=== PATIENT | male | born 1965 ===

== ENCOUNTER 2024-01-27 09:30 | Emergency (ER) | payer BC, SELFPAY ==
[2024-01-27 09:47] VITALS: BP 163/67
--- NOTE | 2024-01-27 10:51 | ED.GENMED ---
History of Present Illness
General
Chief Complaint: Dizziness
Source: patient
Exam Limitations: none
Time Seen by Provider: 01/27/24 10:08
Nursing documentation reviewed up to this point in time: agreed with
History of Present Illness
History of Present Illness:
58 y/o M with no sig pmh
on no meds
doesn't visit doctors
sent by urgent care for symptoms that started 6 days ago
woke up in the morning and felt very dizzy with standing, felt his vision go dark and fell forward but caught himself ; he also felt that the room was a little spinning and he got really warm afterward, flushed ni his face and sweaty. he never fully
passed out he says.
he says he held on to the wall to get to the bathroom but it did eventually pass
then he felt ok
he remembered a few years ago he had vertigo symptoms so he started taking dramamine 2 days later to make sure it didn't come bakc
but then 2 days ago another episode when goign from sitting to standing happened, less intense than the first episode but since then he has had a 'fogginess' in his head where he just doesn't feel right, spacitally with walkings something feels off
this morning at [address] to work he developed some ches tpressure that was central chest and not associated with shortness ob reath, mild but started making him anxious
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
there he had EKG showing LBBB
with his ysmptoms, he was instructed to come to the ER
he no longer has the chest pressure
he denies pleuritic pain, headache, vision changes, numbness/tingling/weakness, speech issue, abdominal pain, nausea, vomiting
Past History
Past History
ED Past Medical History: None
ED Past Surgical History: None
Social History
Tobacco: Smoker
Alcohol: None
Drug: None
Personal:
Living: with family
Employment: Employed
Family History
Family History: Hypertension and Cancer (prostate dad); Negative Early CAD, CAD or Sudden
Review of Systems
Review of Systems
Allergies reviewed?: Yes
All Other Systems: Not applicable
Phy Exam
Physical Exam
Physical Exam:
GENERAL: Alert , in no apparent distress
EYE: pupils equal and reactive
NECK: Supple
ENT: o/p clr, mmm.
CARDIAC: regular, . no murmur appreciated; hr 50s
LUNGS: Clear breath sounds bilaterally, no acute respiratory distress, no wheezes/rales/rhonchi
ABDOMEN: Soft, without focal tenderness, no r/g, no cvat, normal bowel sounds
NEUROLOGICAL: Alert and oriented, no focal neuro deficits, cn intact, 56/5 stgrength, neg romberg, gait steady, no pronator drift
SKIN: Warm and dry, skin intact.
MUSCULOSKELETAL: No edema, well perfused. neg jeffy's sign
PSYCH: Normal and appropriate interaction.
Course
Orders/Labs/Results
Orders:
Orders
01/27/24 09:31
ECG [Electrocardiogram (*1)] Urgent
Reason for Study: Shortness of Breath
01/27/24 09:32
EKG- Treatment ONCE
01/27/24 10:48
Cardiac Monitoring- Treatment ONCE
0.9% Sodium Chloride 500 ml [Nss] 500 ml IV BOLUS
01/27/24 10:49
CT Head W/o Iv Contrast Urgent
Comment:
Reason For Exam: dizzoiness
CR Chest - 2 Views Urgent
Comment:
Reason For Exam: near sycnope vs. dizziness, cp
01/27/24 10:59
COVID-19 Antigen Urgent
Source: Nasal Swab
Complete Blood Count/With Diff Urgent
Comprehensive Metabolic Panel Urgent
Troponin I Urgent
Abnormal Lab Results
01/27/24
10:59
Absolute Monos (auto) 0.7 H 10^3/uL
(0.1-0.6)
Chloride 109 H mmol/L
(98-107)
Glucose 106 H mg/dl
(70-99)
01/27/24 10:59
01/27/24 10:59
Vital Signs
Initial and Last Documented VS:
Initial Vital Signs
Temp Pulse Resp BP Pulse Ox
99.1 F 65 16 163/67 98
01/27/24 09:47 01/27/24 09:47 01/27/24 09:47 01/27/24 09:47 01/27/24 09:47
Last Documented Vital Signs
Temp Pulse Resp BP Pulse Ox
99.1 F 65 16 163/67 98
01/27/24 09:47 01/27/24 09:47 01/27/24 09:47 01/27/24 09:47 01/27/24 09:47
MDM/Problems Addressed
Differential Diagnosis Includes:
orthostasis, hypertension, cva, vertigo, acs
MDM/Problems Addressed:
58 y/o M
initially reported no pmh
but has remotely been on htn, and hld meds
here with positional dizizness, descrbied both as lightheaded and also room spinning
ED Attending Note
-
Portions of this chart may have been created with voice recognition software.� Occasional wrong word or��sound alike� substitutions may have occurred due to the inherent limitations of voice recognition software.
Discharge Plan
Departure
Patient Disposition: Home (Routine Discharge)
Date of Disposition: 01/27/24
Time of Disposition: 12:36
Patient with high blood pressure during this ER visit?: Yes
Condition: Fair
Covid-19: Not Applicable
Discharge Problem:
Dizziness, Vertigo, Hypertension
Instructions: Vertigo (a Type of Dizziness) (DC), BLOOD PRESSURE
Prescriptions:
New
amlodipine 2.5 mg tablet
2.5 mg PO DAILY Qty: 10 0RF
meclizine 25 mg tablet
25 mg PO TID PRN (Reason: dizziness) Qty: 15 0RF
Referrals:
UNKNOWN - PT DOES,NOT KNOW [Family Provider] -
Activity Restrictions/Additional Instructions:
YOUR BLOOD PRESSURE WAS ELEVATED TODAY
BUT YOU HAD NO FINDINGS CONCERNING FOR STROKE OR HEART ATTACK
YOU SHOULD DEFNIITELY FOLLOW UP WITH A FAMILY DOCTOR
YOU PROBABLY SHOULD RESTART BLOOD PRESSURE MEDICATION
I WROTE YOU FOR A SMALL DOSE OF AMLODIPINE 2.5 MG ONCE A DAY
YOUR SYPMTOMS PROBABLY ARE FROM VERTIGO
TAKE MECLIZINE 25 MG 2-3 TIMES A DAY FOR 3 DAYS IN A ROW THEN ONLY NEEDED
RETURN FOR: WORSENING CHEST PAIN, SHORTNESS OF BREAHT, PASSING OUT, HEADACHE, WEAKNESS, NUMBNESS OR ANY CONCENRS.
Interventions
Interventions:
*Risk Screen - Suicide Last Done: 01/27/24 12:47
*General Assessment Last Done: 01/27/24 12:47
*Neglect/Abuse Screening Last Done: 01/27/24 12:47
ED- Fall Risk Assessment Last Done: 01/27/24 12:47
*ED COVID-19 Vaccine History Last Done: 01/27/24 09:47
*Nursing Disposition Last Done: 01/27/24 12:47
ED- Neurological Assessment Last Done: 01/27/24 12:47
ED- Cardiac Assessment Last Done: 01/27/24 12:47
Discharge Date and Time
Discharge Date/Time: 01/27/24 12:48
Print Language: NAURUAN
[2024-01-27] MEDS: NSS 500 IV (11:03)
[2024-01-27 11:12] LABS: % Basophils 0.6 % (0-2); % Eosinophils 1.5 % (0-6); % Immature Granulocytes 0.4 % (0-0.5); % Lymphocytes 22.1 % (20.5-51.1); % Monocytes 9.3 % (1.7-9.3); % Neutrophils 66.1 % (42.2-75.2); Absolute Basophils 0.1 10^3/uL (0-0.2); Absolute Eosinophils 0.1 10^3/uL (0-0.7); Absolute Lymphocytes 1.8 10^3/uL (1.2-3.4); Absolute Monocytes 0.7 10^3/uL (0.1-0.6); Absolute Neutrophils 5.3 10^3/uL (1.4-6.5); Hematocrit 42.2 % (39.0-52.0); Hemoglobin 14.1 g/dL (13.0-18.0); Mean Corp Hgb Conc. 33.4 g/dL (33.0-37.0); Mean Corpuscular Hgb 28.8 pg (27.0-31.0); Mean Corpuscular Volume 86.3 fL (80.0-94.0); Mean Platelet Volume 9.7 fL (7.4-10.4); Nucleated Red Blood Cells % 0 % (-); Platelet Count 252 10^3/uL (130-400); Red Blood Cell Count 4.89 10^6/uL (4.70-6.10); Red Cell Dist. Width 14.5 % (11.5-14.5)
[2024-01-27 11:20] LABS: ALT (SGPT) 27 U/L (0-50); AST (SGOT) 32 U/L (17-59); Albumin 4.4 g/dl (3.5-5.0); Alkaline Phosphatase 87 U/L (38-126); Blood Urea Nitrogen 18 mg/dl (9-20); Calcium 9.3 mg/dl (8.4-10.2); Carbon Dioxide 23 mmol/L (22-30); Chloride 109 mmol/L (98-107); Glucose 106 mg/dl (70-99); Potassium 4.5 mmol/L (3.5-5.1); Sodium 138 mmol/L (135-145); Total Bilirubin 0.5 mg/dl (0.2-1.3); Total Protein 7.2 g/dl (6.3-8.2); eGFR > 60.00
[2024-01-27 11:22] LABS: COVID-19 Antigen Negative (Negative)
[2024-01-27 11:30] LABS: Troponin I < 0.012 ng/ml
[2024-01-27 12:45] VITALS: BP 124/94; BP 144/90; BP 162/90; PULSE 57; PULSE 58; PULSE 59
== END 2024-01-27 12:48 | disposition home or self-care (01) ==
LOC: EMR 09:30
PROVIDERS: Physician Assistant; EMERGENCY PHYSICIAN Emergency Medicine
DX: R42 Dizziness and giddiness (principal); I10 Essential (primary) hypertension; F17.290 Nicotine dependence, other tobacco product, uncomplicated
CPT/HCPCS: 99285; 70450; 71046; 80053; 84484; 85025; 87811; 93005